=== PATIENT | female | born 1970 | race American Indian/Alaskan Native ===

== ENCOUNTER 2022-01-20 11:16 | Emergency (ER) | payer SELFPAY ==
[2022-01-20 11:40] VITALS: BP 106/65
[2022-01-20 12:16] LABS: Bacteria,Urine 1+ /HPF (Negative); Mucus,Urine 3+ /HPF
[2022-01-20 12:23] LABS: Bilirubin,Urine Negative (Negative); Blood,Urine Negative (Negative); Color,Urine Yellow (Yellow)
[2022-01-20 12:24] LABS: Urobilinogen,Urine < 2.0 mg/dL (<2.0)
[2022-01-20 13:29] LABS: Basophils % (Auto) 0.2 % (0.0-1.8); Hematocrit 41.3 % (30.3-42.9); Hemoglobin 13.7 gm/dl (10.1-14.3); Lymphocytes # (Auto) 1.1 K/mm3 (1.2-5.4); Lymphocytes % (Auto) 6.5 % (13.4-35.0); Mean Corpuscular HGB Conc 33 % (30-34); Mean Corpuscular Volume 95 fl (79-97); Monocytes # (Auto) 0.8 K/mm3 (0.0-0.8); Monocytes % (Auto) 5.1 % (0.0-7.3); Platelet Count 302 K/mm3 (140-440); Red Blood Count 4.33 M/mm3 (3.65-5.03); Red Cell Distribution Width 15.5 % (13.2-15.2)
[2022-01-20 13:47] LABS: Alanine Aminotransferase 8 units/L (7-56); Albumin 4.8 g/dL (3.9-5); Blood Urea Nitrogen 10 mg/dL (7-17); Calcium 9.8 mg/dL (8.4-10.2); Hemolysis Index 0
[2022-01-20 13:50] LABS: BUN/Creatinine Ratio 14
--- NOTE | 2022-01-20 15:37 | Emergency Department Report ---
ED Abdominal Pain HPI - General Chief Complaint: Abdominal Pain Stated Complaint: ABD PAIN/NAUSEA Time Seen by Provider: 01/20/22 15:32 Source: patient Mode of arrival: Ambulatory Limitations: No Limitations - History of Present Illness Initial Comments: 51-year-old female presents with abdominal pain describes pain in her mid to lower abdomen with associated nausea and vomiting. Pain is crampy, has been going on for 2 days. Also reports a mass in her groin that has gotten bigger. No fever no diarrhea no chest pain no shortness of breath no urinary complaints. MD Complaint: abdominal pain -: Gradual Location: periumbilical Migration to: no migration, periumbilical Severity: moderate Quality: cramping Consistency: constant Improves With: nothing Worsens With: nothing Associated Symptoms: nausea, vomiting - Related Data Previous Rx's Medication Instructions Recorded Last Taken Type Ibuprofen/Famotidine 1 each PO TID PRN #20 01/20/22 Unknown Rx [Ibuprofen-Famotidin 800-26.6MG] Ondansetron [Zofran Odt] 4 mg PO Q8HR PRN #20 tab.rapdis 01/20/22 Unknown Rx Allergies Allergy/AdvReac Type Severity Reaction Status Date / Time No Known Allergies Allergy Unverified 01/20/22 11:38 ED Review of Systems ROS: Stated complaint: ABD PAIN/NAUSEA Other details as noted in HPI Comment: All other systems reviewed and negative Constitutional: denies: chills, fever Respiratory: no symptoms reported Cardiovascular: as per HPI Endocrine: no symptoms reported Gastrointestinal: abdominal pain, nausea, vomiting Genitourinary: as per HPI Musculoskeletal: denies: back pain Skin: denies: rash Neurological: headache. denies: numbness, paresthesias ED Past Medical Hx - Past Medical History Previous Medical History?: Yes Additional medical history: right inquinal swelling - Surgical History Past Surgical History?: No - Medications Home Medications: Home Medications Medication Instructions Recorded Confirmed Last Taken Type Ibuprofen/Famotidine 1 each PO TID PRN #20 01/20/22 Unknown Rx [Ibuprofen-Famotidin 800-26.6MG] Ondansetron [Zofran Odt] 4 mg PO Q8HR PRN #20 tab.rapdis 01/20/22 Unknown Rx ED Physical Exam - General Limitations: No Limitations, Language Barrier General appearance: alert, in no apparent distress - Head Head exam: Absent: atraumatic - Eye Eye exam: Present: normal appearance Pupils: Present: normal accommodation - ENT ENT exam: Present: normal exam, normal orophraynx - Neck Neck exam: Absent: normal inspection - Respiratory Respiratory exam: Present: normal lung sounds bilaterally. Absent: respiratory distress, rales - Cardiovascular Cardiovascular Exam: Present: regular rate, normal rhythm - GI/Abdominal GI/Abdominal exam: Present: soft, tenderness (Mild tenderness), mass, other (No hernias patient has a 2 x 2 enlarged lymph node in her right groin no warmth, no erythema, no fluctuance, no signs of an acute infection). Absent: distended, hernia - Rectal Rectal exam: Absent: deferred - Extremities Exam Extremities exam: Present: normal inspection, full ROM, normal capillary refill. Absent: tenderness, pedal edema - Back Exam Back exam: Present: normal inspection, full ROM. Absent: tenderness - Neurological Exam Neurological exam: Present: alert, oriented X3, CN II-XII intact, normal gait. Absent: abnormal gait, motor sensory deficit - Psychiatric Psychiatric exam: Present: normal affect, normal mood - Skin Skin exam: Present: warm, dry, intact, normal color. Absent: cyanosis ED Course Vital Signs 01/20/22 11:36 Temperature 98.7 F Pulse Rate 69 Respiratory 18 Rate Blood Pressure 106/65 O2 Sat by Pulse 97 Oximetry ED Medical Decision Making - Lab Data Result diagrams: 01/20/22 12:02 01/20/22 12:02 - Medical Decision Making Differential diagnosis includes gastroenteritis appendicitis,, H. pylori, PUD, cholecystitis, colic elect lithiasis gastritis colitis diverticulitis hernia i ncarcerated hernia, SBO, UTI, lymphadenopathy, other infectious process, 51-year-old female presents with abdominal pain describes pain in her mid to lower abdomen with associated nausea and vomiting. Pain is crampy, has been going on for 2 days. Also reports a mass in her groin that has gotten bigger. No fever no diarrhea no chest pain no shortness of breath no urinary complaints. CT scan is reassuring no acute obstructions, or infectious process, fluid fiLLED mass in the right groin consistent with the exam, no signs of an acute abscess. Most likely the cause of the leukocytosis. Without any acute fever, blood cultures ordered, referral for further evaluation, work-up with understanding . Patient is tolerating oral intake, ambulating steadily, her vital signs remained stable. She is also passed p.o. challenge without vomiting in the emergency department. Discharged home. Patient remained stable nontoxic-appearing, afebrile, ambulating steadily without assistance. Gone over ED findings with patient as well as plan for follow-up. Also discussed return precautions with patient, all questions and concerns addressed. Patient is stable to be discharged follow-up outpatient. Audio voice dictation device used, hence the chart might contain some dictation errors, mispronunciations, wrong spelling and wrong verbiage. Critical care attestation.: If time is entered above; I have spent that time in minutes in the direct care of this critically ill patient, excluding procedure time. ED Disposition Clinical Impression: Abdominal pain, Leukocytosis, Lymphadenopathy, inguinal Disposition: 01 HOME / SELF CARE / HOMELESS Is pt being admited?: No Does the pt Need Aspirin: No Condition: Stable Instructions: Abdominal Pain (ED), Abdominal Pain, Adult, [id number], Lymphadenopathy Prescriptions: Ibuprofen/Famotidine [Ibuprofen-Famotidin 800-26.6MG] 1 each PO TID PRN #20 PRN Reason: Pain , Severe (7-10) Referrals: DOM MITCHELL MD [Primary Care Provider] - 3-5 Days [facility] [Provider Group] - 3-5 Days
[2022-01-20] MEDS ORDERED: ONDANSETRON 4 MG/2 ML INJ IV ONE (17:04)
[2022-01-20] MEDS ORDERED: MORPHINE 4 MG/1 ML INJ IV ONE (17:04)
[2022-01-20] MEDS ORDERED: SODIUM CHLORIDE 0.9% 1000 ML 1,000 ML IV ONE (17:04)
--- NOTE | 2022-01-20 21:33 | Cat Scan Report ---
CT ABDOMEN AND PELVIS WITHOUT CONTRAST INDICATION / CLINICAL INFORMATION: mid abd pain, poss hernia with leucocytosis. TECHNIQUE: Axial CT images were obtained through the abdomen and pelvis without IV contrast. All CT scans at this location are performed using CT dose reduction for ALARA by means of automated exposure control. COMPARISON: None available. FINDINGS: LOWER CHEST: No significant abnormality. LIVER: No significant abnormality. GALLBLADDER: Not visualized and possibly surgically absent. BILE DUCTS: No significant abnormality. PANCREAS: No significant abnormality. SPLEEN: No significant abnormality. ADRENALS: No significant abnormality. RIGHT KIDNEY / URETER: No acute abnormality. Contrast in the collecting system. LEFT KIDNEY / URETER: No acute abnormality. Contrast in the collecting system. STOMACH / SMALL BOWEL: No significant abnormality. COLON: No significant abnormality. APPENDIX: Not visualized. PERITONEUM: No free fluid. No free air. No fluid collection. LYMPH NODES: No significant adenopathy. AORTA / ARTERIES: No significant abnormality. IVC / VEINS: No significant abnormality. URINARY BLADDER: No significant abnormality. REPRODUCTIVE ORGANS: Enlarged, retroverted uterus. No significant adnexal abnormality. ADDITIONAL FINDINGS: Small ovoid fluid collection in the right groin measuring 2.5 x 2.1 cm. No right groin or other abdominal wall hernia. SKELETAL SYSTEM: No significant abnormality. IMPRESSION: 1. No inflammatory process or bowel obstruction. 2. Small fluid collection in the right groin but no significant adenopathy or hernia. 3. Enlarged, retroverted uterus. Signer Name: Gonzalo Ball MD Signed: 01/20/2022 9:29 PM Workstation Name: [id number]
== END 2022-01-20 23:34 | disposition home or self-care (01) ==
LOC: ED 11:16
DX: R10.9 Unspecified abdominal pain (principal); D72.829 Elevated white blood cell count, unspecified; R59.1 Generalized enlarged lymph nodes
CPT/HCPCS: 36415; 74176; 80053; 81001; 84703; 85025; 96360; 99284; J7030